=== PATIENT | male | born 1985 | race Two or more races ===

== ENCOUNTER → 2019-05-14 | Emergency (ER) | payer OTHER ==
[~2019-05-14] VITALS: Ht 172.7 cm; Wt 81.6 kg
[~2019-05-14] MED LIST: CALADRYL 1%-8%177 ML TOP; ZOVIRAX800 M1 PO
== END ==
LOC: ER 03:11
DX: B08.8 Other specified viral infections characterized by skin and mucous membrane lesions (principal)